=== PATIENT | female | born 1985 | race Hispanic/Latino ===

== ENCOUNTER 2020-08-21 02:35 | Emergency (ER) | payer SELFPAY ==
[~2020-08-21] VITALS: Ht 167.6 cm; Wt 65.8 kg
== END 2020-08-21 03:16 | disposition home or self-care (01) ==
LOC: FSED 02:55
DX: O20.9 Hemorrhage in early pregnancy, unspecified (principal); O20.0 Threatened abortion; O23.11 Infections of bladder in pregnancy, first trimester
CPT/HCPCS: 81003; 81025; 99282